=== PATIENT | male | born 1975 | race African-American/Black ===

== ENCOUNTER 2018-09-11 17:25 | Inpatient (IN) | payer OTHER, MEDICAID ==
[~2018-09-11] VITALS: Ht 188 cm; Wt 182.3 kg
[~2018-09-11 17:25] MED LIST: CLON0.1T PO; LISI40TA4 PO; [UNRECOGNIZED DRUG - OTHER] PO
[2018-09-11] MEDS ORDERED: SODIUM CHLORIDE 0.9% 1,000 ML IV ONE ×2 (18:23→19:45)
[2018-09-11 19:04] LABS: CHLORIDE 88 mEq/L (98-107)
[2018-09-11 19:06] LABS: BASOPHILS % 0.5 % (0.0-2.0); EOSINOPHILS % 1.2 % (0.0-5.0); HEMATOCRIT. 48.4 % (42.0-52.0); HEMOGLOBIN. 15.6 g/dL (14.0-18.0); LYMPHOCYTES % 12.9 % (20.0-50.0); MEAN CORPUSCULAR HEMOGLOBIN 28.1 pg (28.0-32.0); MEAN CORPUSCULAR VOLUME 87.3 fL (80.0-94.0); MEAN PLATELET VOLUME 10.8 fl (7.4-10.4); NEUTROPHILS % 78.4 % (40.0-76.0); PLATELET 208 x1000/uL (130-400); RED BLOOD CELL COUNT 5.54 mill/uL (4.7-6.1); RED CELL DISTRIBUTION WIDTH 14.8 % (11.6-14.6)
[2018-09-11 19:14] LABS: BETA HYDROXYBUTYRATE 8.8 mMol/L (0.0-0.3)
[2018-09-11] MEDS ORDERED: INSULIN REGULAR (DRIP) 100 UNITS in SODIUM CHLORIDE 0.9% 100 ML IV STA ×2 (19:48→20:28)
[2018-09-11 20:43] LABS: CLARITY URINE CLEAR (CLEAR); COLOR URINE YELLOW (YELLOW); KETONES URINE 2+ (NEGATIVE); LEUKOCYTE ESTERASE URINE NEGATIVE (NEGATIVE); NITRITE URINE NEGATIVE (NEGATIVE); OCCULT BLOOD URINE NEGATIVE (NEGATIVE); PROTEIN URINE NEGATIVE (NEGATIVE); SPECIFIC GRAVITY URINE 1.026 (1.005-1.030); UROBILINOGEN URINE 0.2 E.U./dL (0.2-1.0)
[2018-09-12] VITALS (39 sets, daily range): BP systolic 102–176; BP diastolic 61–104
[2018-09-12 00:05] LABS: CHLORIDE 99 mEq/L (98-107)
[2018-09-12] MEDS ORDERED: POTASSIUM CHLORIDE INJ 40 MEQ in DEXT 5% WATER 250 ML IV PRN (00:45)
[2018-09-12] MEDS ORDERED: ONDANSETRON HCL 4MG/2ML INJ IV PRN (00:45)
[2018-09-12] MEDS ORDERED: DEXTROSE 50% WATER 50ML SYRINGE IV PRN ×3 (00:45→17:15)
[2018-09-12] MEDS: BLOOD SUGAR DIAGNOSTIC STRIP TEST SCH ×18 (01:00→21:02)
[2018-09-12] MEDS ORDERED: FURO-151 PO (03:41)
[2018-09-12 05:17] LABS: BASOPHILS % 0.7 % (0.0-2.0); EOSINOPHILS % 2.5 % (0.0-5.0); HEMATOCRIT. 44.3 % (42.0-52.0); HEMOGLOBIN. 15.1 g/dL (14.0-18.0); LYMPHOCYTES % 15.4 % (20.0-50.0); MEAN CORPUSCULAR HEMOGLOBIN 28.8 pg (28.0-32.0); MEAN CORPUSCULAR VOLUME 84.3 fL (80.0-94.0); MEAN PLATELET VOLUME 9.9 fl (7.4-10.4); MONOCYTES % 11.4 % (2.0-8.0); PLATELET 222 x1000/uL (130-400); RED BLOOD CELL COUNT 5.26 mill/uL (4.7-6.1); RED CELL DISTRIBUTION WIDTH 15.3 % (11.6-14.6)
[2018-09-12] MEDS: INSULIN REGULAR (DRIP) 100 UNITS in SODIUM CHLORIDE 0.9% 100 ML IV SCH ×2 (05:21→09:01)
[2018-09-12 05:23] LABS: CHLORIDE 105 mEq/L (98-107)
[2018-09-12 05:31] LABS: HDL CHOLESTEROL 36 mg/dL (40-59); LDL CHOLESTEROL 121 mg/dL (5-100)
[2018-09-12] MEDS ORDERED: SODIUM CHLORIDE 0.9% 1,000 ML IV SCH (06:00)
[2018-09-12] MEDS: ENOXAPARIN 40MG/0.4ML SYR SUBCUT SCH ×2 (09:00→21:08)
[2018-09-12] MEDS ORDERED: POTASSIUM CHLORIDE INJ 40 MEQ in DEXT 5% WATER 250 ML IV SCH (09:00)
[2018-09-12] MEDS: PANTOPRAZOLE SODIUM 40 MG/VIAL IV SCH (09:00)
[2018-09-12] MEDS: DEXT 5%/0.9% NACL 1,000 ML IV SCH (12:17)
[2018-09-12 12:26] LABS: CHLORIDE 110 mEq/L (98-107)
[2018-09-12] MEDS ORDERED: FUROSEMIDE 40MG/4ML VIAL IVP ONE (14:00)
[2018-09-12 16:47] LABS: CHLORIDE 112 mEq/L (98-107)
[2018-09-12] MEDS: INSULIN LISPRO 100 UNITS/ML SUBCUT SCH ×3 (18:20→21:09)
[2018-09-12] MEDS ORDERED: INSULIN GLARGINE UD 100 UNITS/ML SYR SUBCUT SCH (18:30)
[2018-09-12] MEDS ORDERED: POTASSIUM CHLORIDE INJ 40 MEQ in DEXT 5% WATER 250 ML IV NR (18:30)
[2018-09-12 21:43] LABS: CHLORIDE 105 mEq/L (98-107)
[2018-09-13] VITALS (47 sets, daily range): BP systolic 125–256; BP diastolic 56–168
[2018-09-13 01:21] LABS: CHLORIDE 105 mEq/L (98-107)
[2018-09-13] MEDS: DEXT 5%/0.9% NACL 1,000 ML IV SCH (01:51)
[2018-09-13 06:05] LABS: CHLORIDE 104 mEq/L (98-107)
[2018-09-13] MEDS: BLOOD SUGAR DIAGNOSTIC STRIP TEST SCH ×4 (06:58→20:46)
[2018-09-13] MEDS: INSULIN LISPRO 100 UNITS/ML SUBCUT SCH ×7 (07:06→21:02)
[2018-09-13] MEDS: PANTOPRAZOLE SODIUM 40 MG/VIAL IV SCH (08:09)
[2018-09-13] MEDS: ENOXAPARIN 40MG/0.4ML SYR SUBCUT SCH ×2 (08:09→20:44)
[2018-09-13] MEDS: SODIUM CHLORIDE 0.9% 1,000 ML IV SCH ×2 (09:57→22:35)
[2018-09-13] MEDS ORDERED: INSULIN GLARGINE UD 100 UNITS/ML SYR SUBCUT SCH ×2 (11:00→22:00)
[2018-09-13] MEDS: CLONIDINE 0.1MG TABLET PO PRN ×2 (12:39→22:49)
[2018-09-13 12:43] LABS: CHLORIDE 104 mEq/L (98-107)
[2018-09-13] MEDS ORDERED: INSULIN LISPRO 100 UNITS/ML SUBCUT SCH (12:50)
[2018-09-13] MEDS ORDERED: LOSARTAN POTASSIUM 25 MG TABLET PO SCH (12:53)
[2018-09-13] MEDS ORDERED: HYDROCODONE/ACETAMINOPHEN 5/325MG TABLET PO PRN (14:00)
[2018-09-13] MEDS ORDERED: LABE300T3 PO (15:04)
[2018-09-13] MEDS ORDERED: AMLO5TAB88 PO (15:50)
[2018-09-13] MEDS ORDERED: POTASSIUM CHLORIDE 20MEQ TABLET SR PO NR (16:00)
[2018-09-13] MEDS: LISINOPRIL 40MG TABLET PO SCH (16:13)
[2018-09-13] MEDS: FUROSEMIDE 40MG TABLET PO SCH (16:13)
[2018-09-13] MEDS: AMLODIPINE 5MG TABLET PO SCH (16:13)
[2018-09-13] MEDS: LABETALOL HCL 300MG TABLET PO SCH ×2 (16:14→20:44)
[2018-09-13] MEDS: MORPHINE SULFATE 4 MG/ML CPJ (NOT FOR IM USE) IV PRN ×2 (17:49→21:34)
[2018-09-13] MEDS: ATORVASTATIN CALCIUM 20MG TABLET PO SCH (20:44)
[2018-09-13] MEDS: CLONIDINE 0.1MG TABLET PO SCH (20:45)
[2018-09-14] VITALS (33 sets, daily range): BP systolic 97–160; BP diastolic 49–102
[2018-09-14] MEDS: SODIUM CHLORIDE 0.9% 1,000 ML IV SCH (05:05)
[2018-09-14 05:34] LABS: BASOPHILS % 0.5 % (0.0-2.0); EOSINOPHILS % 2.5 % (0.0-5.0); HEMATOCRIT. 43.6 % (42.0-52.0); HEMOGLOBIN. 14.2 g/dL (14.0-18.0); LYMPHOCYTES % 16.1 % (20.0-50.0); MEAN CORPUSCULAR HEMOGLOBIN 28.1 pg (28.0-32.0); MEAN CORPUSCULAR VOLUME 86.2 fL (80.0-94.0); MEAN PLATELET VOLUME 9.9 fl (7.4-10.4); MONOCYTES % 9.8 % (2.0-8.0); NEUTROPHILS % 71.1 % (40.0-76.0); PLATELET 173 x1000/uL (130-400); RED BLOOD CELL COUNT 5.06 mill/uL (4.7-6.1); RED CELL DISTRIBUTION WIDTH 15.1 % (11.6-14.6)
[2018-09-14 05:49] LABS: CHLORIDE 105 mEq/L (98-107)
[2018-09-14] MEDS: BLOOD SUGAR DIAGNOSTIC STRIP TEST SCH ×4 (07:50→21:11)
[2018-09-14] MEDS: PANTOPRAZOLE SODIUM 40 MG/VIAL IV SCH (08:02)
[2018-09-14] MEDS: FUROSEMIDE 40MG TABLET PO SCH ×2 (08:03→17:31)
[2018-09-14] MEDS: LABETALOL HCL 300MG TABLET PO SCH ×2 (08:03→21:10)
[2018-09-14] MEDS: LISINOPRIL 40MG TABLET PO SCH (08:03)
[2018-09-14] MEDS: ENOXAPARIN 40MG/0.4ML SYR SUBCUT SCH ×2 (08:03→21:11)
[2018-09-14] MEDS: AMLODIPINE 5MG TABLET PO SCH (08:03)
[2018-09-14] MEDS: CLONIDINE 0.1MG TABLET PO SCH ×2 (08:03→21:10)
[2018-09-14] MEDS: INSULIN LISPRO 100 UNITS/ML SUBCUT SCH ×7 (08:04→21:12)
[2018-09-14] MEDS ORDERED: INSULIN GLARGINE UD 100 UNITS/ML SYR SUBCUT SCH (10:00)
[2018-09-14] MEDS: METFORMIN HCL 500MG TABLET PO SCH ×2 (12:51→17:31)
[2018-09-14] MEDS: GLIPIZIDE 5MG TABLET PO SCH (12:51)
[2018-09-14] MEDS: ATORVASTATIN CALCIUM 20MG TABLET PO SCH (21:11)
[2018-09-14] MEDS: INSULIN GLARGINE UD 100 UNITS/ML SYR SUBCUT SCH (21:21)
[2018-09-15 04:00] VITALS: BP 114/53
[2018-09-15] MEDS: FUROSEMIDE 40MG TABLET PO SCH (06:34)
[2018-09-15] MEDS: INSULIN LISPRO 100 UNITS/ML SUBCUT SCH ×4 (06:36→12:04)
[2018-09-15] MEDS: BLOOD SUGAR DIAGNOSTIC STRIP TEST SCH ×2 (06:37→12:03)
[2018-09-15] MEDS: METFORMIN HCL 500MG TABLET PO SCH (07:46)
[2018-09-15 08:00] VITALS: BP 119/69
[2018-09-15 08:17] VITALS: BP 119/69
[2018-09-15] MEDS: PANTOPRAZOLE SODIUM 40 MG/VIAL IV SCH (09:27)
[2018-09-15] MEDS: AMLODIPINE 5MG TABLET PO SCH (09:27)
[2018-09-15] MEDS: LISINOPRIL 40MG TABLET PO SCH (09:27)
[2018-09-15] MEDS: ENOXAPARIN 40MG/0.4ML SYR SUBCUT SCH (09:27)
[2018-09-15] MEDS: LABETALOL HCL 300MG TABLET PO SCH (09:27)
[2018-09-15] MEDS: CLONIDINE 0.1MG TABLET PO SCH (09:27)
[2018-09-15 09:52] LABS: CHLORIDE 103 mEq/L (98-107)
[2018-09-15] MEDS: INSULIN GLARGINE UD 100 UNITS/ML SYR SUBCUT SCH (11:11)
[2018-09-15] MEDS ORDERED: POTASSIUM CHLORIDE INJ 40 MEQ in DEXT 5% WATER 500 ML IV NR (11:30)
[2018-09-15] MEDS: GLIPIZIDE 5MG TABLET PO SCH (12:02)
[2018-09-15 14:32] VITALS: BP 103/70
[2018-09-15 16:00] VITALS: BP 103/70
[2018-09-16] MEDS ORDERED: POTASSIUM CHLORIDE 10MEQ TABLET SR PO SCH (09:00)
== END 2018-09-15 17:20 | disposition home or self-care (01) | DRG 638 ==
LOC: ER 17:25 → CVICU 19:52 → EDBEDREQSVC 20:28 → ENRESERV 21:49 → 8WST 09-14 15:38
PROVIDERS: ADMIT Internal Medicine; ATTEND Internal Medicine
DX: E11.10 Type 2 diabetes mellitus with ketoacidosis without coma (principal); N17.9 Acute kidney failure, unspecified; E87.1 Hypo-osmolality and hyponatremia; I13.0 Hypertensive heart and chronic kidney disease with heart failure and stage 1 through stage 4 chronic kidney disease, or unspecified chronic kidney disease; I50.9 Heart failure, unspecified; E11.22 Type 2 diabetes mellitus with diabetic chronic kidney disease; N18.9 Chronic kidney disease, unspecified; E87.6 Hypokalemia; Z82.49 Family history of ischemic heart disease and other diseases of the circulatory system; Z83.3 Family history of diabetes mellitus; Z91.14 Patient's other noncompliance with medication regimen
CPT/HCPCS: 36415; 71045; 80048; 80061; 82010; 82962; 83036; 83605; 83735; 84484; 93005; 96361; 96365; 99285; C9113; J1650; J1815; J2270; J2405; J3480; J7030; J7042; J7050; J7060

== ENCOUNTER 2023-12-04 10:07 | Inpatient (IN) | payer MEDICAID, OTHER ==
[~2023-12-04] VITALS: Ht 177.8 cm; Wt 134.3 kg
[~2023-12-04 10:07] MED LIST changes: +AMLO5TAB88 PO; +FURO-151 PO; +LABE300T36 PO; +LISI40TA13 PO; -LISI40TA4 PO; -[UNRECOGNIZED DRUG - OTHER] PO
[2023-12-04 10:13] VITALS: O2SAT 98
[2023-12-04] MEDS ORDERED: ONDANSETRON HCL 4MG/2ML INJ IV STA (10:51)
[2023-12-04] MEDS ORDERED: CEFTRIAXONE 1GM PREMIX 50 ML IV ONE (11:00)
[2023-12-04] MEDS ORDERED: SODIUM CHLORIDE 0.9% 1000ML BAG (SEPSIS BOLUS) IV ONE (11:00)
[2023-12-04 12:21] LABS: BASOPHILS % 0.4 % (0.0-2.0); EOSINOPHILS % 0.5 % (0.0-5.0); HEMATOCRIT. 48.6 % (42.0-52.0); HEMOGLOBIN. 15.8 g/dL (14.0-18.0); MEAN CORPUSCULAR HEMOGLOBIN 27.5 pg (28.0-32.0); MEAN CORPUSCULAR HGB CONC 32.5 g/dL (31.0-37.0); MEAN CORPUSCULAR VOLUME 84.6 fL (80.0-94.0); MONOCYTES % 7.6 % (2.0-8.0); NEUTROPHILS % 79.5 % (40.0-76.0); PLATELET 228 x1000/uL (130-400); RED BLOOD CELL COUNT 5.75 mill/uL (4.7-6.1); WHITE BLOOD COUNT 10.1 x1000/uL (4.5-11.0)
[2023-12-04 12:40] LABS: INR 1.4; PROTHROMBIN TIME 14.9 sec (9.6-11.0)
[2023-12-04 13:03] LABS: ALANINE AMINOTRANSFERASE 13 IU/L (10-49); ALBUMIN 3.3 g/dL (3.2-4.8); ASPARTATE AMINOTRANSFERASE 22 IU/L (<34); BILIRUBIN TOTAL 1.8 mg/dL (0.1-1.0); CALCIUM 8.6 mg/dL (8.7-10.4); CARBON DIOXIDE 25 mEq/L (21-32); CHLORIDE 103 mEq/L (98-107); CREATININE 1.4 mg/dL (0.6-1.3); GLUCOSE 119 mg/dL (70-105); PROTEIN TOTAL 7.6 g/dL (6.0-8.3); SODIUM 141 mEq/L (136-145); TROPONIN I HIGH SENSITIVITY 39 ng/L (3.0-53); UREA NITROGEN BLOOD 18 mg/dL (9-23)
[2023-12-04 13:19] LABS: ETHANOL BLOOD < 10 mg/dL (<10)
[2023-12-04 13:24] LABS: POTASSIUM 2.8 mEq/L (3.5-5.1)
[2023-12-04] MEDS ORDERED: KCL 20MEQ/100ML PREMIX 100 ML IV ONE (14:00)
[2023-12-04] MEDS ORDERED: MAGNESIUM 2 G PREMIX 50 ML IV ONE (14:00)
[2023-12-04] MEDS ORDERED: POTASSIUM CHLORIDE 20MEQ/PACKET PO ONE (14:00)
[2023-12-04] MEDS ORDERED: DOCUSATE SODIUM 100MG CAPSULE PO PRN (14:45)
[2023-12-04] MEDS ORDERED: ZOLPIDEM TARTRATE 5MG TABLET PO PRN (14:45)
[2023-12-04] MEDS ORDERED: GUAIFENESIN 200MG/10ML SUGAR FREE UDC PO PRN (14:45)
[2023-12-04] MEDS ORDERED: NITROGLYCERIN 0.4MG TABLET SL SL PRN (14:45)
[2023-12-04] MEDS ORDERED: MAGNESIUM/ALUMINUM HYDROXIDE/SIMETHICONE 30ML UDC PO PRN (14:45)
[2023-12-04] MEDS ORDERED: CLONIDINE 0.1MG TABLET PO PRN (14:45)
[2023-12-04] MEDS ORDERED: ONDANSETRON HCL 4MG/2ML INJ IV PRN (14:45)
[2023-12-04] MEDS ORDERED: ACETAMINOPHEN 325MG TABLET PO PRN ×2 (14:45)
[2023-12-04] MEDS ORDERED: IPRATROPIUM/ALBUTEROL 0.5-3(2.5)MG/3ML NEB NEB PRN (14:45)
[2023-12-04] MEDS ORDERED: KETOROLAC 15MG/ML VIAL IV PRN (14:45)
[2023-12-04 15:21] LABS: CHOLESTEROL 158 mg/dL (<200); HDL CHOLESTEROL 25 mg/dL (>55); IRON 62 ug/dL (65-175); LDL CHOLESTEROL 106 mg/dL (5-100); T4 FREE 1.13 ng/dL (0.89-1.76); THYROID STIMULATING HORMONE 3.82 uIU/mL (0.55-4.78); TOTAL IRON BINDING CAPACITY 155 ug/dl (250-425); TRIGLYCERIDE 126 mg/dL (0-150)
[2023-12-04] MEDS ORDERED: PIPERACILLIN/TAZO 3.375G/50ML 50 ML IV NR (15:30)
[2023-12-04 16:00] LABS: FOLIC ACID (FOLATE) SERUM 8.89 ng/mL (>5.38); VITAMIN B12 SERUM 561 pg/mL (211-911)
[2023-12-04] MEDS: ENOXAPARIN 30MG/0.3ML SYR SUBCUT SCH (16:00)
[2023-12-04] MEDS ORDERED: VANCOMYCIN 2,000 MG in DEXT 5% WATER 500 ML IV NR (16:30)
[2023-12-04] MEDS ORDERED: DEXTROSE 50% WATER 50ML SYRINGE IV PRN (16:45)
[2023-12-04] MEDS ORDERED: POTASSIUM CHLORIDE 20MEQ TABLET SR PO NR (16:45)
[2023-12-04] MEDS: BLOOD SUGAR DIAGNOSTIC STRIP TEST SCH ×2 (17:00→21:00)
[2023-12-04] MEDS: INSULIN LISPRO 100 UNITS/ML SUBCUT SCH ×2 (17:19→21:00)
[2023-12-04] MEDS ORDERED: MAGNESIUM 2 G PREMIX 50 ML IV NR (18:00)
[2023-12-04] MEDS: ASCORBIC ACID 500 MG TABLET PO SCH (22:45)
[2023-12-04] MEDS: INSULIN GLARGINE 100 UNITS/ML SUBCUT SCH (22:45)
[2023-12-04] MEDS: PIPERACILLIN/TAZO 3.375G/50ML 50 ML IV NR (23:00)
[2023-12-05] VITALS: BP_SYST 105; BP_SYST 117; BP_DIAS 43; BP_DIAS 60; PULSE 66; PULSE 80; RESP 18; RESP 20; TEMP 98.1
[2023-12-05 04:00] VITALS: BP 115/79; PULSE 69; RESP 20
[2023-12-05] MEDS: ENOXAPARIN 30MG/0.3ML SYR SUBCUT SCH ×2 (04:00→15:55)
[2023-12-05] MEDS: BLOOD SUGAR DIAGNOSTIC STRIP TEST SCH ×4 (06:40→20:59)
[2023-12-05 07:01] LABS: BASOPHILS % 0.9 % (0.0-2.0); HEMATOCRIT. 47.9 % (42.0-52.0); HEMOGLOBIN. 15.4 g/dL (14.0-18.0); LYMPHOCYTES % 26.1 % (20.0-50.0); MEAN CORPUSCULAR HGB CONC 32.1 g/dL (31.0-37.0); MEAN PLATELET VOLUME 9.2 fl (7.4-10.4); MONOCYTES % 9.7 % (2.0-8.0); NEUTROPHILS % 61.3 % (40.0-76.0); PLATELET 219 x1000/uL (130-400); RED BLOOD CELL COUNT 5.71 mill/uL (4.7-6.1); RED CELL DISTRIBUTION WIDTH 18.5 % (11.6-14.6); WHITE BLOOD COUNT 6.3 x1000/uL (4.5-11.0)
[2023-12-05] MEDS: INSULIN LISPRO 100 UNITS/ML SUBCUT SCH ×4 (07:10→21:00)
[2023-12-05 07:36] LABS: CREATINE KINASE 92 IU/L (46-171); CREATINE KINASE MB FRACTION 1.7 ng/mL (0.5-3.6); PHOSPHORUS 4.3 mg/dL (2.5-4.9); TROPONIN I HIGH SENSITIVITY 38 ng/L (3.0-53)
[2023-12-05] MEDS ORDERED: PANTOPRAZOLE SODIUM 40 MG/VIAL IV SCH (09:00)
[2023-12-05] MEDS ORDERED: ZINC SULFATE 220 MG ( 50 ) CAPSULE PO SCH (09:00)
[2023-12-05] MEDS: ASCORBIC ACID 500 MG TABLET PO SCH ×2 (10:04→21:06)
[2023-12-05] MEDS ORDERED: VANCOMYCIN 1.25GM PMX (XELLIA) 250 ML IV SCH (12:00)
[2023-12-05] MEDS ORDERED: MAGNESIUM 1 G PREMIX 100 ML IV NR (15:30)
[2023-12-05] MEDS: PIPERACILLIN/TAZO 3.375G/50ML 50 ML IV NR (15:54)
[2023-12-05 17:56] LABS: ALANINE AMINOTRANSFERASE 12 IU/L (10-49); ALBUMIN 3.1 g/dL (3.2-4.8); ASPARTATE AMINOTRANSFERASE 24 IU/L (<34); BILIRUBIN TOTAL 1.7 mg/dL (0.1-1.0); CALCIUM 8.4 mg/dL (8.7-10.4); CARBON DIOXIDE 23 mEq/L (21-32); CHLORIDE 105 mEq/L (98-107); CREATININE 1.4 mg/dL (0.6-1.3); GLUCOSE 104 mg/dL (70-105); POTASSIUM 3.1 mEq/L (3.5-5.1); PROTEIN TOTAL 7.2 g/dL (6.0-8.3); SODIUM 138 mEq/L (136-145); UREA NITROGEN BLOOD 18 mg/dL (9-23)
[2023-12-05] MEDS ORDERED: KETOROLAC 15MG/ML VIAL IV PRN (19:45)
[2023-12-05 20:00] VITALS: BP 113/77; PULSE 75; RESP 19; TEMP 99.3
[2023-12-05] MEDS ORDERED: POTASSIUM CHLORIDE 20MEQ TABLET SR PO NR (20:30)
[2023-12-05] MEDS: INSULIN GLARGINE 100 UNITS/ML SUBCUT SCH (21:06)
[2023-12-05] MEDS ORDERED: PIPERACILLIN/TAZO 3.375G/50ML 50 ML IV SCH (22:00)
[2023-12-06] MEDS ORDERED: VANCOMYCIN 1.25GM PMX (XELLIA) 250 ML IV SCH (06:00)
[2023-12-06] MEDS ORDERED: ENOXAPARIN 40MG/0.4ML SYR SUBCUT SCH (06:00)
== END 2023-12-05 22:00 | disposition short-term general hospital (02) | DRG 871 ==
LOC: ER 10:07 → EDBEDREQ 11:07 → 5WST 14:05 → EDBEDREQ 14:10 → EDBEDREQTM 14:10 → 5WST 17:27 → 7EST 22:23
PROVIDERS: ADMIT Internal Medicine; ATTEND Internal Medicine
DX: A41.9 Sepsis, unspecified organism (principal); J18.9 Pneumonia, unspecified organism; R65.21 Severe sepsis with septic shock; E44.1 Mild protein-calorie malnutrition; Z68.41 Body mass index [BMI] 40.0-44.9, adult; E11.9 Type 2 diabetes mellitus without complications; E66.01 Morbid (severe) obesity due to excess calories; E83.51 Hypocalcemia; E87.6 Hypokalemia; I11.0 Hypertensive heart disease with heart failure; I50.9 Heart failure, unspecified; Z79.4 Long term (current) use of insulin; Z79.899 Other long term (current) drug therapy
CPT/HCPCS: 36415; 71045; 74176; 80053; 80061; 80320; 82550; 82553; 82607; 82746; 82962; 83036; 83540; 83550; 83605; 83735; 83880; 84100; 84145; 84439; 84443; 84484; 85025; 85379; 86850; 86900; 93005; 93306; 93970; 99291; J0696; J1650; J1815; J2405; J2543; J3370; J3475; J3480; J7030; J7060; G0480

== ENCOUNTER 2024-03-29 11:13 | Inpatient (IN) | payer OTHER ==
[~2024-03-29] VITALS: Ht 188 cm; Wt 154.7 kg
[2024-03-29 12:10] LABS: BASOPHILS % 0.9 % (0.0-2.0); EOSINOPHILS % 1.1 % (0.0-5.0); HEMATOCRIT. 45.9 % (42.0-52.0); LYMPHOCYTES % 19.3 % (20.0-50.0); MEAN CORPUSCULAR HEMOGLOBIN 29.1 pg (28.0-32.0); MEAN CORPUSCULAR HGB CONC 32.6 g/dL (31.0-37.0); MEAN CORPUSCULAR VOLUME 89.4 fL (80.0-94.0); MEAN PLATELET VOLUME 8.8 fl (7.4-10.4); MONOCYTES % 8.4 % (2.0-8.0); NEUTROPHILS % 70.3 % (40.0-76.0); PLATELET 212 x1000/uL (130-400); RED BLOOD CELL COUNT 5.13 mill/uL (4.7-6.1); RED CELL DISTRIBUTION WIDTH 16.6 % (11.6-14.6); WHITE BLOOD COUNT 6.5 x1000/uL (4.5-11.0)
[2024-03-29 12:16] LABS: CHLORIDE 99 mEq/L (98-107); POTASSIUM 3.2 mEq/L (3.5-5.1); SODIUM 133 mEq/L (136-145)
[2024-03-29 12:17] LABS: CALCIUM 9.6 mg/dL (8.7-10.4); CARBON DIOXIDE 26 mEq/L (21-32)
[2024-03-29 12:22] LABS: CREATININE 1.3 mg/dL (0.6-1.3); GLUCOSE 124 mg/dL (70-105); UREA NITROGEN BLOOD 14 mg/dL (9-23)
[2024-03-29 12:24] LABS: ALANINE AMINOTRANSFERASE 10 IU/L (10-49); ALBUMIN 3.5 g/dL (3.2-4.8); ASPARTATE AMINOTRANSFERASE 14 IU/L (<34); BILIRUBIN DIRECT 1.3 mg/dL (<=3.0); BILIRUBIN TOTAL 2.3 mg/dL (0.1-1.0); PROTEIN TOTAL 7.1 g/dL (6.0-8.3)
[2024-03-29] MEDS: SODIUM CHLORIDE 0.9% 1,000 ML IV ONE (12:28)
[2024-03-29] MEDS: ENALAPRIL 1.25MG/ML VIAL 1ML IV NR (12:30)
[2024-03-29 13:13] LABS: TROPONIN I HIGH SENSITIVITY 22 ng/L (3.0-53)
[2024-03-29] MEDS ORDERED: LEVOFLOXACIN 750MG PREMIX 150 ML IV ONE (13:15)
[2024-03-29] MEDS ORDERED: FUROSEMIDE 40MG/4ML VIAL IVP ONE (13:15)
[2024-03-29] MEDS ORDERED: ENALAPRIL 2.5MG/2ML VIAL 2ML IV ONE (13:15)
[2024-03-29] MEDS: FUROSEMIDE 40MG/4ML VIAL IVP NR (13:55)
[2024-03-29] MEDS: LEVOFLOXACIN 750MG PREMIX 150 ML IV NR (13:55)
[2024-03-29] MEDS ORDERED: IPRATROPIUM/ALBUTEROL 0.5-3(2.5)MG/3ML NEB HHN PRN (16:00)
[2024-03-29] MEDS ORDERED: DOCUSATE SODIUM 100MG CAPSULE PO PRN (16:00)
[2024-03-29] MEDS ORDERED: DEXTROSE 50% WATER 50ML SYRINGE IV PRN (16:00)
[2024-03-29] MEDS ORDERED: ONDANSETRON HCL 4MG/2ML INJ IV PRN (16:00)
[2024-03-29] MEDS ORDERED: ACETAMINOPHEN 325MG TABLET PO PRN ×2 (16:00)
[2024-03-29] MEDS ORDERED: ISOS30TA91 PO (16:18)
[2024-03-29] MEDS ORDERED: BISO5TAB13 PO (16:18)
[2024-03-29] MEDS ORDERED: SACU1TAB4 PO (16:18)
[2024-03-29] MEDS ORDERED: ATOR10TA69 PO (16:18)
[2024-03-29] MEDS ORDERED: EMPA25TA PO (16:18)
[2024-03-29] MEDS ORDERED: TORS20TA4 PO (16:18)
[2024-03-29] MEDS ORDERED: DABI150C PO (16:18)
[2024-03-29] MEDS ORDERED: SPIR25TA6 PO (16:18)
[2024-03-29] MEDS: POTASSIUM CHLORIDE 20MEQ TABLET SR PO NR (16:52)
[2024-03-29] MEDS ORDERED: TORSEMIDE PO SCH (17:00)
[2024-03-29] MEDS ORDERED: MEDICATION NOT ON FORMULARY EA (Sacubitril/Valsartan (Entresto 97 mg-103 mg Tablet) 1 TA PO SCH (17:00)
[2024-03-29] MEDS ORDERED: MEDICATION NOT ON FORMULARY EA (Dabigatran Etexilate Mesylate (Pradaxa) 1 CAP) PO SCH (17:00)
[2024-03-29] MEDS: TORSEMIDE 10MG TABLET PO SCH (17:15)
[2024-03-29] MEDS: BLOOD SUGAR DIAGNOSTIC STRIP TEST SCH (17:48)
[2024-03-29] MEDS: INSULIN LISPRO 100 UNITS/ML SUBCUT SCH (17:50)
[2024-03-29] MEDS: IBUPROFEN 800MG TABLET PO NR (19:40)
[2024-03-29] MEDS: ATORVASTATIN CALCIUM 10MG TABLET PO SCH (21:00)
[2024-03-29] MEDS: ENOXAPARIN 40MG/0.4ML SYR SUBCUT SCH (21:00)
[2024-03-29] MEDS: SPIRONOLACTONE 25MG TABLET PO SCH (21:13)
[2024-03-29 23:45] VITALS: BP 130/94; PULSE 69; RESP 19; TEMP 97.3
[2024-03-30 01:19] LABS: CREATINE KINASE MB FRACTION 1.4 ng/mL (0.5-3.6)
[2024-03-30 01:20] LABS: PHOSPHORUS 3.9 mg/dL (2.5-4.9)
[2024-03-30 04:00] VITALS: BP 132/96; PULSE 61; RESP 19; TEMP 97.6
[2024-03-30 07:17] LABS: BASOPHILS % 0.4 % (0.0-2.0); EOSINOPHILS % 1.6 % (0.0-5.0); HEMATOCRIT. 44.5 % (42.0-52.0); HEMOGLOBIN. 14.8 g/dL (14.0-18.0); LYMPHOCYTES % 26.9 % (20.0-50.0); MEAN CORPUSCULAR HGB CONC 33.2 g/dL (31.0-37.0); MEAN CORPUSCULAR VOLUME 87.4 fL (80.0-94.0); MEAN PLATELET VOLUME 9.3 fl (7.4-10.4); MONOCYTES % 8.2 % (2.0-8.0); NEUTROPHILS % 62.9 % (40.0-76.0); PLATELET 208 x1000/uL (130-400); RED BLOOD CELL COUNT 5.09 mill/uL (4.7-6.1); RED CELL DISTRIBUTION WIDTH 16.4 % (11.6-14.6); WHITE BLOOD COUNT 6.1 x1000/uL (4.5-11.0)
[2024-03-30 07:20] LABS: CARBON DIOXIDE 26 mEq/L (21-32); CHLORIDE 100 mEq/L (98-107); POTASSIUM 3.3 mEq/L (3.5-5.1); SODIUM 136 mEq/L (136-145)
[2024-03-30 07:22] LABS: CALCIUM 9.2 mg/dL (8.7-10.4)
[2024-03-30 07:25] LABS: CREATINE KINASE MB FRACTION 1.4 ng/mL (0.5-3.6)
[2024-03-30 07:26] LABS: CREATININE 1.2 mg/dL (0.6-1.3); GLUCOSE 104 mg/dL (70-105)
[2024-03-30 07:27] LABS: LDL CHOLESTEROL 83 mg/dL (5-100); TRIGLYCERIDE 101 mg/dL (0-150); UREA NITROGEN BLOOD 13 mg/dL (9-23)
[2024-03-30 07:28] LABS: CHOLESTEROL 121 mg/dL (<200)
[2024-03-30 07:29] LABS: HDL CHOLESTEROL 25 mg/dL (>55); T4 FREE 1.12 ng/dL (0.89-1.76); THYROID STIMULATING HORMONE 2.49 uIU/mL (0.55-4.78)
[2024-03-30 07:51] LABS: D-DIMER 0.81 mg/L FEU (<0.50); INR 1.2; PROTHROMBIN TIME 13.6 sec (9.6-11.0)
[2024-03-30 08:00] VITALS: BP 125/87; PULSE 62; RESP 20; TEMP 97.3
[2024-03-30] MEDS: PANTOPRAZOLE 40MG DR TABLET PO SCH (08:15)
[2024-03-30] MEDS: FUROSEMIDE 40MG/4ML VIAL IVP SCH (09:10)
[2024-03-30 12:00] VITALS: BP 128/95; PULSE 72; RESP 18; TEMP 97.3
[2024-03-30] MEDS: POTASSIUM CHLORIDE 20MEQ TABLET SR PO NR (15:51)
[2024-03-30 16:00] VITALS: BP 119/90; PULSE 78; RESP 20; TEMP 97.5
[2024-03-30] MEDS: APIXABAN 5 MG TABLET PO SCH (18:32)
[2024-03-30 20:00] VITALS: BP 122/84; PULSE 72; RESP 20; TEMP 97.8
[2024-03-31] VITALS: BP 104/81; PULSE 81; RESP 18; TEMP 97.7
[2024-03-31 04:00] VITALS: BP 149/103; PULSE 83; RESP 19; TEMP 97.6
[2024-03-31 08:00] VITALS: BP 134/95; PULSE 62; RESP 18; TEMP 97.5
[2024-03-31 11:49] LABS: T4 FREE 1.1 ng/dL (0.89-1.76)
[2024-03-31 11:53] VITALS: BP 117/79; PULSE 66; RESP 18; TEMP 97.2
[2024-03-31 11:55] LABS: BG BASE EXCESS 3.6 mmol/L (-2.0-2.0); BG CARBOXYHEMOGLOBIN 0.4 % (0.5-1.5); BG DEOXYHEMOGLOBIN 9.3 % (0.0-5.0); BG FRACTION INSPIRED OXYGEN 21; BG HCO3 ACT 27.6 mmol/L (22.0-26.0); BG OXYGEN SATURATION 90.7 % (92.0-98.5); BG OXYHEMOGLOBIN 90.3 % (94.0-97.0); BG PCO2 39.6 mmHg (35.0-45.0); BG PH 7.461 (7.350-7.450); BG SAMPLE SITE RIGHT RADIAL; BG TOTAL HEMOGLOBIN 15.8 g/dL (12.0-18.0); BG VENT MODE ROOM AIR
[2024-03-31 12:34] LABS: CARBON DIOXIDE 23 mEq/L (21-32); CHLORIDE 101 mEq/L (98-107); POTASSIUM 3.4 mEq/L (3.5-5.1); SODIUM 137 mEq/L (136-145)
[2024-03-31 12:35] LABS: CALCIUM 9.3 mg/dL (8.7-10.4)
[2024-03-31 12:40] LABS: CREATININE 1.4 mg/dL (0.6-1.3); GLUCOSE 139 mg/dL (70-105); UREA NITROGEN BLOOD 15 mg/dL (9-23)
[2024-03-31 12:42] LABS: PHOSPHORUS 4.2 mg/dL (2.5-4.9)
[2024-03-31 16:00] VITALS: BP 129/71; PULSE 64; RESP 18; TEMP 97.1
[2024-03-31] MEDS: POTASSIUM CHLORIDE 20MEQ TABLET SR PO NR (16:28)
[2024-03-31 16:36] LABS: TROPONIN I HIGH SENSITIVITY 20 ng/L (3.0-53)
[2024-03-31 18:14] LABS: CREATINE KINASE MB FRACTION 1.3 ng/mL (0.5-3.6)
[2024-03-31 18:15] LABS: CREATINE KINASE 44 IU/L (46-171); TROPONIN I HIGH SENSITIVITY 21 ng/L (3.0-53)
[2024-03-31 20:00] VITALS: BP 127/97; PULSE 68; RESP 20; TEMP 97.7
[2024-04-01] VITALS: BP 124/94; PULSE 70; RESP 19; TEMP 97.5
[2024-04-01 01:27] LABS: CREATINE KINASE MB FRACTION 1.6 ng/mL (0.5-3.6)
[2024-04-01 04:00] VITALS: BP 149/90; PULSE 74; RESP 20; TEMP 97.5
[2024-04-01 07:27] LABS: HEMATOCRIT 45.9 % (42.0-52.0); HEMOGLOBIN 15.2 g/dL (14.0-18.0); MEAN CORPUSCULAR HEMOGLOBIN 29.3 pg (28.0-32.0); MEAN CORPUSCULAR HGB CONC 33.2 g/dL (31.0-37.0); MEAN CORPUSCULAR VOLUME 88.2 fL (80.0-94.0); PLATELET 209 x1000/uL (130-400); RED BLOOD CELL COUNT 5.21 mill/uL (4.7-6.1); RED CELL DISTRIBUTION WIDTH 16.9 % (11.6-14.6); WHITE BLOOD COUNT 6.6 x1000/uL (4.5-11.0)
[2024-04-01 07:58] LABS: CHLORIDE 101 mEq/L (98-107); POTASSIUM 3.5 mEq/L (3.5-5.1); SODIUM 136 mEq/L (136-145)
[2024-04-01 07:59] LABS: CARBON DIOXIDE 23 mEq/L (21-32)
[2024-04-01 08:00] VITALS: BP 132/84; PULSE 86; RESP 19; TEMP 97.6
[2024-04-01 08:00] LABS: CALCIUM 9.6 mg/dL (8.7-10.4); CREATINE KINASE MB FRACTION 1.3 ng/mL (0.5-3.6); TROPONIN I HIGH SENSITIVITY 21 ng/L (3.0-53)
[2024-04-01 08:05] LABS: CREATININE 1.4 mg/dL (0.6-1.3); GLUCOSE 99 mg/dL (70-105); UREA NITROGEN BLOOD 15 mg/dL (9-23)
[2024-04-01 08:06] LABS: ALBUMIN 3.5 g/dL (3.2-4.8)
[2024-04-01 08:07] LABS: ALANINE AMINOTRANSFERASE 7 IU/L (10-49); ASPARTATE AMINOTRANSFERASE 16 IU/L (<34); BILIRUBIN TOTAL 2.2 mg/dL (0.1-1.0); CREATINE KINASE 39 IU/L (46-171); PHOSPHORUS 3.8 mg/dL (2.5-4.9)
[2024-04-01] MEDS: METOPROLOL TARTRATE 25MG TABLET PO NR (09:19)
[2024-04-01] MEDS: NITROGLYCERIN SPRAY/4.9GM CAN TL ONE (11:36)
[2024-04-01] MEDS ORDERED: IOHEXOL-350 100 ML BOTTLE ONE (11:57)
[2024-04-01 12:00] VITALS: BP 129/89; PULSE 84; RESP 19; TEMP 97.6
[2024-04-01 16:00] VITALS: BP 119/87; PULSE 79; RESP 19; TEMP 97.3
[2024-04-01 20:00] VITALS: BP 123/87; PULSE 99; RESP 19; TEMP 97.7
[2024-04-02] VITALS: BP 123/96; PULSE 80; RESP 20; TEMP 97.7
[2024-04-02 04:00] VITALS: BP 136/106; PULSE 76; RESP 20; TEMP 97.5
[2024-04-02] MEDS: CLONIDINE 0.1MG TABLET PO PRN (05:59)
[2024-04-02 07:25] LABS: CARBON DIOXIDE 25 mEq/L (21-32); CHLORIDE 100 mEq/L (98-107); POTASSIUM 3.5 mEq/L (3.5-5.1); SODIUM 137 mEq/L (136-145)
[2024-04-02 07:26] LABS: CALCIUM 9.6 mg/dL (8.7-10.4)
[2024-04-02 07:30] LABS: CREATININE 1.4 mg/dL (0.6-1.3)
[2024-04-02 07:31] LABS: GLUCOSE 100 mg/dL (70-105); UREA NITROGEN BLOOD 18 mg/dL (9-23)
[2024-04-02 07:33] LABS: PHOSPHORUS 4.3 mg/dL (2.5-4.9)
[2024-04-02 08:00] VITALS: BP 130/106; PULSE 104; RESP 19; TEMP 97.7
[2024-04-02] MEDS: FUROSEMIDE 40MG TABLET PO SCH (08:55)
[2024-04-02 11:36] VITALS: BP 111/87; PULSE 74; RESP 19; TEMP 97.2
[2024-04-02 16:03] VITALS: BP 132/86; PULSE 109; RESP 20; TEMP 97.2
[2024-04-02] MEDS ORDERED: APIX5TAB PO (17:52)
[2024-04-02 17:54] VITALS: BP 132/86; PULSE 105; TEMP 98.3; O2SAT 95
== END 2024-04-02 20:34 | DRG 291 ==
LOC: ER 11:13 → EDBEDREQTM 13:39 → EDBEDREQ 13:39 → 7WST 23:10
PROVIDERS: ADMIT Internal Medicine; ATTEND Internal Medicine
DX: I11.0 Hypertensive heart disease with heart failure (principal); I50.23 Acute on chronic systolic (congestive) heart failure; J18.9 Pneumonia, unspecified organism; J96.01 Acute respiratory failure with hypoxia; E11.9 Type 2 diabetes mellitus without complications; E78.5 Hyperlipidemia, unspecified; G47.33 Obstructive sleep apnea (adult) (pediatric); M17.12 Unilateral primary osteoarthritis, left knee; M19.072 Primary osteoarthritis, left ankle and foot; R42 Dizziness and giddiness; I25.10 Atherosclerotic heart disease of native coronary artery without angina pectoris; I48.91 Unspecified atrial fibrillation; Z79.4 Long term (current) use of insulin; Z79.01 Long term (current) use of anticoagulants
CPT/HCPCS: 36415; 36600; 71045; 73560; 73610; 75571; 78580; 80048; 80053; 80061; 80076; 82375; 82550; 82553; 82805; 82962; 83036; 83735; 83880; 84100; 84145; 84439; 84443; 84484; 85025; 85027; 85379; 93005; 93306; 93880; 99285; J1650; J1815; J1940; J1956; J3490; J7030; Q9967

== ENCOUNTER 2025-04-12 11:52 | Emergency (ER) | payer MEDICAID ==
[~2025-04-12] VITALS: Ht 185.4 cm; Wt 127.0 kg
[~2025-04-12 11:52] MED LIST changes: +APIX5TAB PO; +ATOR10TA69 PO; -CLON0.1T PO; +EMPA25TA PO; -FURO-151 PO; +ISOS30TA91 PO; -LABE300T36 PO; -LISI40TA13 PO; +SACU1TAB4 PO; +TORS20TA4 PO
[2025-04-12 11:54] VITALS: O2SAT 100
[2025-04-12] MEDS: FUROSEMIDE 40MG/4ML VIAL IV ONE (12:54)
[2025-04-12 12:56] LABS: BASOPHILS % 0.2 % (0.0-2.0); EOSINOPHILS % 0.1 % (0.0-5.0); HEMATOCRIT. 40.1 % (42.0-52.0); HEMOGLOBIN. 12.8 g/dL (14.0-18.0); LYMPHOCYTES % 7.9 % (20.0-50.0); MEAN CORPUSCULAR HEMOGLOBIN 28.6 pg (28.0-32.0); MEAN CORPUSCULAR HGB CONC 31.8 g/dL (31.0-37.0); MEAN CORPUSCULAR VOLUME 89.8 fL (80.0-94.0); MEAN PLATELET VOLUME 9.8 fl (7.4-10.4); MONOCYTES % 7.9 % (2.0-8.0); NEUTROPHILS % 83.9 % (40.0-76.0); PLATELET 123 x1000/uL (130-400); RED BLOOD CELL COUNT 4.47 mill/uL (4.7-6.1); RED CELL DISTRIBUTION WIDTH 16.6 % (11.6-14.6); WHITE BLOOD COUNT 12.2 x1000/uL (4.5-11.0)
[2025-04-12 13:02] LABS: CHLORIDE 102 mEq/L (98-107); POTASSIUM 3.4 mEq/L (3.5-5.1); SODIUM 140 mEq/L (136-145)
[2025-04-12 13:03] LABS: CALCIUM 9.2 mg/dL (8.7-10.4); CARBON DIOXIDE 24 mEq/L (21-32)
[2025-04-12 13:08] LABS: GLUCOSE 110 mg/dL (70-105); UREA NITROGEN BLOOD 57 mg/dL (9-23)
[2025-04-12 13:09] LABS: TROPONIN I HIGH SENSITIVITY 45 ng/L (3.0-53)
[2025-04-12 13:20] VITALS: BP 134/100; PULSE 98; RESP 24; TEMP 36.7; O2SAT 96
[2025-04-12 13:34] LABS: CREATININE 2.7 mg/dL (0.6-1.3)
== END 2025-04-12 16:08 | disposition home or self-care (01) ==
LOC: ER 11:52 → CANBEDREQ 15:11 → ER 16:08
DX: I11.0 Hypertensive heart disease with heart failure (principal); I50.9 Heart failure, unspecified; N17.9 Acute kidney failure, unspecified; E11.9 Type 2 diabetes mellitus without complications; I48.91 Unspecified atrial fibrillation; F10.90 Alcohol use, unspecified, uncomplicated; Z79.01 Long term (current) use of anticoagulants; Z79.899 Other long term (current) drug therapy; Y90.9 Presence of alcohol in blood, level not specified
CPT/HCPCS: 80048; 83880; 85025; 84484; 36415; 71045; 93005; 96374; 99285; J1940; Z7610 ×3; A4606